=== PATIENT | female | born 1955 | race Caucasian/White ===

== ENCOUNTER → 2019-12-06 15:40 | Outpatient (BNVA) | payer BC, SELFPAY | PROVIDERS: Family Provider Family Medicine; PCP Nurse Practitioner Family; Visit Provider Internal Medicine Cardiovascular Disease | DX: M79.89 Other specified soft tissue disorders (principal); R06.02 Shortness of breath; I34.0 Nonrheumatic mitral (valve) insufficiency; R00.2 Palpitations; I10 Essential (primary) hypertension | CPT/HCPCS: 80048; 83735 ==

== ENCOUNTER → 2019-12-27 15:45 | Outpatient (BNVA) | payer BC, SELFPAY | PROVIDERS: Family Provider Family Medicine; PCP Family Medicine; Visit Provider Family Medicine | DX: I10 Essential (primary) hypertension (principal); Z78.0 Asymptomatic menopausal state; E55.9 Vitamin D deficiency, unspecified | CPT/HCPCS: 85025 ==

== ENCOUNTER → 2020-01-03 10:14 | Outpatient (BNVA) | payer BC, SELFPAY | PROVIDERS: Family Provider Family Medicine; PCP Family Medicine; Visit Provider Family Medicine | DX: I10 Essential (primary) hypertension (principal); E55.9 Vitamin D deficiency, unspecified | CPT/HCPCS: 80053; 80061; 82044; 82306; 85025 ==

== ENCOUNTER → 2020-06-19 10:41 | Outpatient (BNVA) | payer BC, SELFPAY | PROVIDERS: Family Provider Family Medicine; PCP Family Medicine; Visit Provider Internal Medicine Cardiovascular Disease | DX: E78.5 Hyperlipidemia, unspecified (principal) | CPT/HCPCS: 80061 ==

== ENCOUNTER → 2020-08-28 09:49 | Outpatient (BNVA) | payer BC, SELFPAY | PROVIDERS: Family Provider Family Medicine; PCP Family Medicine; Visit Provider Internal Medicine Cardiovascular Disease | DX: E55.9 Vitamin D deficiency, unspecified (principal); I10 Essential (primary) hypertension; M79.89 Other specified soft tissue disorders | CPT/HCPCS: 80061; 80076 ==

== ENCOUNTER → 2021-01-01 11:15 | Outpatient (BNVA) | payer BC, SELFPAY | PROVIDERS: Family Provider Family Medicine; PCP Family Medicine; Visit Provider Family Medicine | DX: Z13.6 Encounter for screening for cardiovascular disorders (principal); Z78.0 Asymptomatic menopausal state | CPT/HCPCS: 85025 ==

== ENCOUNTER 2021-02-19 14:08 | Outpatient (CLI) | payer BC, SELFPAY ==
--- NOTE | 2021-02-19 14:12 | XR_ITS ---
WS: [id number] SCREENING DEXA SCAN [employer] CLINICAL INFORMATION: post-menopausal COMPARISON: None. FINDINGS: The L1-L4 bone mineral density measures 0.984 g/cm2. This corresponds to a T score score of -1.6 and Z score of -0.5. Left femoral neck bone mineral density measures 0.645 g/cm2. This corresponds to a T score of -2.9 an d Z score of -1.9. Right femoral neck bone mineral density measures 0.706 g/cm2. This corresponds to a T score -2.4of an d Z score of -1.4. Mean femoral neck bone mineral density measures 0.676 g/cm2. This corresponds to a T score of -2.6 an d Z score of -1.6. XR/XR DEXA axial skeleton* [id number] IMPRESSION: Osteopenia in the lumbar spine. Osteoporosis in the femoral necks. Patient's FRAX calculated 10 year probability for major osteoporotic fracture i s 24.0 % and osteoporotic hip fracture is 10.2%.
== END 2021-02-19 14:09 | disposition home or self-care (01) ==
PROVIDERS: PCP Family Medicine; Visit Provider Family Medicine
DX: Z78.0 Asymptomatic menopausal state (principal); M85.88 Other specified disorders of bone density and structure, other site; M81.0 Age-related osteoporosis without current pathological fracture
CPT/HCPCS: 77080

== ENCOUNTER 2021-09-03 13:48 | Outpatient (CLI) | payer BC, SELFPAY ==
--- NOTE | 2021-09-03 14:15 | USCV_ITS ---
Kathy Franks Age: 65 Gender: F : 1955 Exam Date: 09/03/2021 14:36 Ordering Phys: Girish Cornejo MD ([email or web address] Technologist: KEY Exam Location: [facility] [place] Indication: Disorder of arteries and arterioles Risk Factors: Previous Vascular Surgery: Right Brachial BP: / Left Brachial BP: / Right Left Velocity (cm/s) Spectral Plaque Velocity (cm/s) Spectral Plaque Syst/Diast Broadening Syst/Diast Broadening 99.20/ 18.70 Prox CCA 83.40 / 23.10 98.10/ 16.50 Mid CCA 91.30 / 17.30 65.10/ 15.80 Distal CCA 72.20 / 18.60 69.80/ 14.30 Prox ICA 60.30 / 20.60 79.40/ 23.80 Mid ICA 75.00 / 27.60 67.50/ 24.60 Distal ICA 48.20 / 21.00 71.30 ECA 69.10 0.81 ICA/CCA 0.82 Antegrade Vertebral Antegrade 47.00/ 11.70 cm/s 66.00/ 20.20 cm/s Bi Subclavian Bi 78.60 82.90 FINDINGS Minimal plaques at the bifurcations bilaterally Intimal thickening in the common carotid and internal carotid arteries bilaterally Antegrade flow in the vertebral arteries bilaterally Normal Doppler flow velocities in the external, vertebral and subclavian arteries bilaterally CONCLUSIONS Minimal plaques at the bifurcations bilaterally. No significant stenosis in any of the extracranial vessels mentioned above, based on the findings Dr Girish Cornejo MD [facility] (Electronically Signed) Final Date: 03 September 2021 15:52 S
== END 2021-09-03 13:49 | disposition home or self-care (01) ==
LOC: RAD 13:52
PROVIDERS: PCP Family Medicine; Visit Provider Internal Medicine Cardiovascular Disease
DX: I77.9 Disorder of arteries and arterioles, unspecified (principal); R09.89 Other specified symptoms and signs involving the circulatory and respiratory systems; I65.23 Occlusion and stenosis of bilateral carotid arteries
CPT/HCPCS: 93880

== ENCOUNTER 2021-11-12 15:37 | Inpatient (IN) | payer MEDICARE, BC, SELFPAY ==
[2021-11-12 16:24] VITALS: BP 132/71; RESP 20; TEMP 38; O2SAT 96; BMI 25.7
--- NOTE | 2021-11-12 16:44 | CTR_ITS ---
PROCEDURE INFORMATION: Exam: CT Abdomen And Pelvis Without Contrast Exam date and time: 11/12/2021 4:55 PM Age: 66 years old Clinical indication: Pain; Other: Umbillical, flank and bilateral pelvic; Additional info: Lower quadrant abd pain, thin cuts, no contrast TECHNIQUE: Imaging protocol: Computed tomography of the abdomen and pelvis without contrast. Radiation optimization: All CT scans at this facility use at least one of these dose optimization techniques: automated exposure control; mA and/or kV adjustment per patient size (includes targeted exams where dose is matched to clinical indication); or iterative reconstruction. COMPARISON: CT abdomen pelvis w con* [id number] 09/13/2017 5:05 AM RADIATION DOSE METRICS: Total DLP (mGy-cm): 1233.81 FINDINGS: Liver: Normal. No mass. Gallbladder and bile ducts: Normal. No calcified stones. No ductal dilation. Pancreas: Normal. No ductal dilation. Spleen: Normal. No splenomegaly. Adrenal glands: Normal. No mass. Kidneys and ureters: Normal. No hydronephrosis. Stomach and bowel: Abnormal bowel wall thickening in the proximal sigmoid colon with fairly extensive pericolonic fat stranding changes and soft tissue attenuation possibly representing phlegmon changes with no organized pericolonic fluid collection at this time. Negative for bowel pneumatosis. Scattered diverticulosis coli. Negative for bowel obstruction. Appendix: No evidence of appendicitis. Intraperitoneal space: No free intraperitoneal air. Vasculature: Scattered atherosclerosis. Negative for abdominal aortic aneurysm. Lymph nodes: Unremarkable. No enlarged lymph nodes. Urinary bladder: Unremarkable as visualized. Reproductive: Unremarkable as visualized. Bones/joints: Unremarkable. No acute fracture. Multiple compression deformities of lumbar spine stable from comparison. Soft tissues: Unremarkable. CT/CT abdomen pelvis wo con [id number] IMPRESSION: Acute abnormal inflammatory changes in the proximal sigmoid colon are suspected with adjacent phlegmon. No organized abscess at this time. Diverticulitis favored, but other nonspecific colitis not excluded. Underlying mass cannot be excluded.
--- NOTE | 2021-11-12 16:45 | XRR_ITS ---
PROCEDURE INFORMATION: Exam: XR Chest Exam date and time: 11/12/2021 4:55 PM Age: 66 years old Clinical indication: Pain; Other: Lower ribs bilaterally; Additional info: Cough TECHNIQUE: Imaging protocol: XR of the chest. Views: 1 view. COMPARISON: CR Abdomen 2 views [id number] 09/14/2017 6:54 AM FINDINGS: Lungs: No focal airspace consolidation. Unremarkable interstitium. Pleural spaces: Unremarkable. No pleural effusion. No pneumothorax. Heart/Mediastinum: Mild severity cardiomegaly. Vasculature: Negative for vascular dilation. Bones/joints: Unremarkable. XR/XR chest 1V portable [id number] IMPRESSION: No acute chest abnormality identified.
--- NOTE | 2021-11-12 17:03 | W.ED.GENADLT ---
HPI - General Adult General: Chief complaint: Abdominal Pain Stated complaint: abdominal/back pain, shakiness,nausea, vomiting Time Seen by Provider: 11/12/21 16:06 History of Present Illness: Patient is a 66-year-old female with history of hypertension who presents the emergency room for multiple complaints today including productive cough, nasal congestion, and abdominal pain. Patient tells me that she has been having on and off abdominal pain for the last month that has now worsened. Patient reports right lower quadrant left lower quadrant abdominal pain with radiation to the left flank. Pain is worse after eating. Patient reports nausea vomiting and decreased p.o. intake. Patient denies any diarrhea/melena/hematochezia. Patient reports symptoms of dysuria for the last 2 weeks. Denies any hematuria or new vaginal discharge. In addition, for the last few weeks, patient has also reported nasal congestion and productive phlegm and cough. Patient noted that at home she had a low grade fever in the last 2 days. Patient denies any prior abdominal surgeries. Patient denies any history of renal colic. Patient denies any chest pain, shortness breath palpitation or lightheadedness. Onset:1 month agao Duration:ongoing Location:home Severity:moderate Associated symptoms: Reports nausea and vomiting; Deny chest pain, dyspnea, rash or palpitations Review of Systems Const: Denies: fever(s) or chills Eyes: Denies: change in vision ENMT: Reports: other (+nasal congestion); Denies: mouth pain Card: Denies: chest pain or palpitations Resp: Reports: productive cough; Denies: dyspnea GI: Reports: nausea, vomiting and other (+decreased po intake); Denies: abdominal pain or diarrhea : Denies: dysuria Musc: Denies: extremity pain Skin/Breast: Denies: rash or new lesions Neuro: Denies: weakness in extremities Psych: Reports: other (Normal mood) Colt/Lymph: Denies: easy bruising PFSH ED PFSH: Medical History Chronic joint pain Essential hypertension Left leg swelling Leg swelling Non-rheumatic mitral regurgitation Palpitations with regular cardiac rhythm Vitamin D deficiency Surgical History No pertinent past surgical history Family History Sister Cancer Family/Other Diabetes Stroke Denies family history of CAD (coronary artery disease) Clotting disorder Dementia Chronic kidney disease (CKD) Suicide Anesthesia complication Bleeding disorder Lung disease Social History Smoking and tobacco status: former smoker Alcohol intake: never Physical Exam Const: COMMON NORMALS: alert HENMT: COMMON NORMALS: atraumatic HEAD & SCALP: atraumatic MOUTH: moist mucous membranes not abnormal Eye: COMMON NORMALS: EOMs intact bilaterally and conjunctivae normal CONJUNCTIVA: Yes conjunctivae normal Neck/C-Spine: COMMON NORMALS: full ROM and supple Resp: COMMON NORMALS: normal respiratory effort and clear to auscultation bilaterally AUSCULTATION: clear to auscultation bilaterally Cardio: COMMON NORMALS: regular rate RATE: regular rate GI: COMMON NORMALS: Soft to palpation PALPATION: Yes Soft to palpation OTHER: +moderatre RLQ/LLQ TTP. NO guarding rebound, guarding, rigidity. No CVA tenderness to percussion. Neg Theodore/Neg McBurney's point tenderness, no suprabupic tenderness to palpation. Extremity: COMMON NORMALS: full ROM Neuro: SENSORIUM/ORIENTATION: Yes alert MOTOR EXAM: No Abnormal motor strength present and Other motor observations present (no focal motor deficits) Psych: COMMON NORMALS: speech normal SPEECH: Yes normal speech MOOD & AFFECT: Yes euthymic mood Course Vital Signs: Vital signs: Vital Signs Temperature 100.4 F H 11/12/21 16:24 Respiratory Rate 20 H 11/12/21 16:24 Blood Pressure 132/71 11/12/21 16:24 Pulse Oximetry 96 11/12/21 16:24 MDM - General Adult Medical Decision Making 58-year-old female with history of hypertension presenting to the emergency room with complaints of lower abdominal pain, productive cough, phlegm. On physical exam, patient is noted to be febrile 100.4 degrees. Patient has moderate tenderness palpation in the right lower quadrant and left lower quadrant without any guarding or rebound tenderness. WBC of 15K. CT abdomen pelvis showed complicated diverticulitis with phlegmon. Case was discussed with Dr. Owens who recommend inpatient mission and observation with IV antibiotics. Patient received IVF, Tylenol, Pepcid, Zosyn. Disposition: admission for observation Lab Data : 11/12/21 17:15 11/12/21 17:15 Radiology Impressions Abdomen/Pelvis CT 11/12/21 16:44 IMPRESSION: Acute abnormal inflammatory changes in the proximal sigmoid colon are suspected with adjacent phlegmon. No organized abscess at this time. Diverticulitis favored, but other nonspecific colitis not excluded. Underlying mass cannot be excluded. Chest X-Ray 11/12/21 16:45 IMPRESSION: No acute chest abnormality identified. Laboratory Results WBC 15.3 10^3/uL (4.0-10.0) H 11/12/21 17:15 RBC 3.61 10^6/uL (4.1-5.3) L 11/12/21 17:15 Hgb 10.3 g/dL (11.5-15.3) L 11/12/21 17:15 Hct 31.0 % (37.0-47.0) L 11/12/21 17:15 MCV 85.9 fl (81-99) 11/12/21 17:15 MCH 28.5 pg (28.0-34.0) 11/12/21 17:15 MCHC 33.2 g/dL (30.0-36.0) 11/12/21 17:15 RDW 12.9 % (12.1-15.1) 11/12/21 17:15 Plt Count 449 10^3/cmm (130-400) H 11/12/21 17:15 MPV 9.6 fL (7.4-10.4) 11/12/21 17:15 Neut % (Auto) 78.7 % 11/12/21 17:15 Lymph % (Auto) 10.6 % 11/12/21 17:15 Boyd % (Auto) 9.9 % 11/12/21 17:15 Eos % (Auto) 0.3 % 11/12/21 17:15 Baso % (Auto) 0.2 % 11/12/21 17:15 Neut # (Auto) 12.06 10^3/uL (1.8-7.7) H 11/12/21 17:15 Lymph # (Auto) 1.6 10^3/uL (0.8-4.8) 11/12/21 17:15 Boyd # (Auto) 1.5 10^3/uL (0.2-0.9) H 11/12/21 17:15 Eos # (Auto) 0.0 10^3/uL (0.0-0.8) 11/12/21 17:15 Baso # (Auto) 0.0 10^3/uL (0.0-0.1) 11/12/21 17:15 Nucleated RBC % (auto) 0 % 11/12/21 17:15 Nucleated RBCs # 0.0 /100WBC 11/12/21 17:15 Sodium 129 mmol/L (136-145) L 11/12/21 17:15 Potassium 3.5 mmol/L (3.5-5.1) 11/12/21 17:15 Chloride 92 mmol/L (98-107) L 11/12/21 17:15 Carbon Dioxide 26 mmol/L (22-29) 11/12/21 17:15 Anion Gap 14.5 (5-19) 11/12/21 17:15 BUN 5 mg/dL (8-23) L 11/12/21 17:15 Creatinine 0.5 mg/dL (0.5-0.9) 11/12/21 17:15 GFR Calculation 122.7 mL/min (90-130) 11/12/21 17:15 Glucose 109 mg/dL (65-115) 11/12/21 17:15 Calculated Osmolality 266 mOsm/kg (285-295) L 11/12/21 17:15 Calcium 9.0 mg/dL (8.5-10.5) 11/12/21 17:15 Total Bilirubin 0.4 mg/dL (0.15-1.2) 11/12/21 17:15 AST 30 U/L (0-32) 11/12/21 17:15 ALT 28 U/L (0-33) 11/12/21 17:15 Alkaline Phosphatase 91 IU/L (35-105) 11/12/21 17:15 Total Protein 7.5 g/dL (6.6-8.7) 11/12/21 17:15 Albumin 3.3 g/dL (3.5-5.2) L 11/12/21 17:15 Globulin 4.2 g/dL (1.3-4.6) 11/12/21 17:15 Lipase 19 U/L (13-60) 11/12/21 17:15 Urine Color Yellow (Yellow) 11/12/21 17:39 Urine Appearance Clear (CLEAR) 11/12/21 17:39 Urine pH 8 (5-7) H 11/12/21 17:39 Ur Specific [place] 1.015 (1.005-1.030) 11/12/21 17:39 Urine Protein Neg (Negative) 11/12/21 17:39 Urine Glucose (UA) Norm (Normal) 11/12/21 17:39 Urine Ketones Negative (Negative) 11/12/21 17:39 Urine Blood Neg (Negative) 11/12/21 17:39 Urine Nitrate Negative (Negative) 11/12/21 17:39 Urine Bilirubin Neg (Negative) 11/12/21 17:39 Prot Sulfosalicylic Acd Negative (Negative) 11/12/21 17:39 Urine Urobilinogen Norm mg/dL (Negative) 11/12/21 17:39 Ur Leukocyte Esterase 1+ (Negative) H 11/12/21 17:39 Amorphous Sediment Not Reportable 11/12/21 17:39 Imaging Data Other Imaging: Radiologist's impression: [address] [address] XRay Report Signed Patient: Kathy Franks Unit #: [id number] : 1955 Age/Sex: 66 / F ADM Date: 11/12/21 Loc: ER Room/Bed: Attending Dr: Ordering Provider/Ordering MD: Pablo Adrian MD Date of Service: 11/12/21 Procedure(s): XR chest 1V portable [id number] Accession Number(s): [id number] Report Number: [id number] PROCEDURE INFORMATION: Exam: XR Chest Exam date and time: 11/12/2021 4:55 PM Age: 66 years old Clinical indication: Pain; Other: Lower ribs bilaterally; Additional info: Cough TECHNIQUE: Imaging protocol: XR of the chest. Views: 1 view. COMPARISON: CR Abdomen 2 views [id number] 09/14/2017 6:54 AM FINDINGS: Lungs: No focal airspace consolidation. Unremarkable interstitium. Pleural spaces: Unremarkable. No pleural effusion. No pneumothorax. Heart/Mediastinum: Mild severity cardiomegaly. Vasculature: Negative for vascular dilation. Bones/joints: Unremarkable. XR/XR chest 1V portable [id number] IMPRESSION: No acute chest abnormality identified. ? Dictated By: Topher Sanabria Signed By: Topher Sanabria Signed Date/Time: 11/12/21 1735 DD/ [address] [employer] [address] [address] Scan Report Signed Patient: Kathy Franks Unit #: [id number] : 1955 Age/Sex: 66 / F ADM Date: 11/12/21 Loc: ER Room/Bed: Attending Dr: Ordering Provider/Ordering MD: Pablo Adrian MD Date of Service: 11/12/21 Procedure(s): CT abdomen pelvis wo con [id number] Accession Number(s): [id number] Report Number: [id number] PROCEDURE INFORMATION: Exam: CT Abdomen And Pelvis Without Contrast Exam date and time: 11/12/2021 4:55 PM Age: 66 years old Clinical indication: Pain; Other: Umbillical, flank and bilateral pelvic; Additional info: Lower quadrant abd pain, thin cuts, no contrast TECHNIQUE: Imaging protocol: Computed tomography of the abdomen and pelvis without contrast. Radiation optimization: All CT scans at this facility use at least one of these dose optimization techniques: automated exposure control; mA and/or kV adjustment per patient size (includes targeted exams where dose is matched to clinical indication); or iterative reconstruction. COMPARISON: CT abdomen pelvis w con* [id number] 09/13/2017 5:05 AM RADIATION DOSE METRICS: Total DLP (mGy-cm): 1233.81 FINDINGS: Liver: Normal. No mass. Gallbladder and bile ducts: Normal. No calcified stones. No ductal dilation. Pancreas: Normal. No ductal dilation. Spleen: Normal. No splenomegaly. Adrenal glands: Normal. No mass. Kidneys and ureters: Normal. No hydronephrosis. Stomach and bowel: Abnormal bowel wall thickening in the proximal sigmoid colon with fairly extensive pericolonic fat stranding changes and soft tissue attenuation possibly representing phlegmon changes with no organized pericolonic fluid collection at this time. Negative for bowel pneumatosis. Scattered diverticulosis coli. Negative for bowel obstruction. Appendix: No evidence of appendicitis. Intraperitoneal space: No free intraperitoneal air. Vasculature: Scattered atherosclerosis. Negative for abdominal aortic aneurysm. Lymph nodes: Unremarkable. No enlarged lymph nodes. Urinary bladder: Unremarkable as visualized. Reproductive: Unremarkable as visualized. Bones/joints: Unremarkable. No acute fracture. Multiple compression deformities of lumbar spine stable from comparison. Soft tissues: Unremarkable. CT/CT abdomen pelvis wo con [id number] IMPRESSION: Acute abnormal inflammatory changes in the proximal sigmoid colon are suspected with adjacent phlegmon. No organized abscess at this time. Diverticulitis favored, but other nonspecific colitis not excluded. Underlying mass cannot be excluded. ? Dictated By: Topher Sanabria Signed By: Topher Sanabria Signed Date/Time: 11/12/21 1734 DD/ 1655 Discharge Plan Discharge Patient Disposition: Admitted As Inpatient Clinical Impression: Abdominal pain, Nausea & vomiting, Decrease in appetite, Diverticulitis of large intestine with complication Condition: Stable Coding Level of Care Code ED Intermodal Dispatcher for Chg Fwd Exam Comprehensive
[2021-11-12 17:25] LABS: Basophils % 0.2 %; Eosinophils % 0.3 %; Hemoglobin 10.3 g/dL (11.5-15.3); Lymphocytes # 1.6 10^3/uL (0.8-4.8); Lymphocytes % 10.6 %; Mean Corpuscular HGB Conc 33.2 g/dL (30.0-36.0); Mean Corpuscular Hemoglobin 28.5 pg (28.0-34.0); Mean Corpuscular Volume 85.9 fl (81-99); Mean Platelet Volume 9.6 fL (7.4-10.4); Monocytes # 1.5 10^3/uL (0.2-0.9); Monocytes % 9.9 %; Neutrophils # 12.06 10^3/uL (1.8-7.7); Neutrophils % 78.7 %; Nucleated Red Blood Cells % 0 %; Platelet Count 449 10^3/cmm (130-400); Red Blood Count 3.61 10^6/uL (4.1-5.3); Red Cell Distribution Width 12.9 % (12.1-15.1); White Blood Count 15.3 10^3/uL (4.0-10.0)
[2021-11-12 17:45] LABS: Alanine Aminotransferase 28 U/L (0-33); Albumin Level 3.3 g/dL (3.5-5.2); Alkaline Phosphatase 91 IU/L (35-105); Anion Gap 14.5 (5-19); Aspartate Amino Transferase 30 U/L (0-32); Blood Urea Nitrogen 5 mg/dL (8-23); Carbon Dioxide 26 mmol/L (22-29); Chloride 92 mmol/L (98-107); Creatinine Clr Calc Pharmacy 63.7878; Globulin 4.2 g/dL (1.3-4.6); Glomerular Filtration Rate 122.7 mL/min (90-130); Glucose 109 mg/dL (65-115); Lipase 19 U/L (13-60); Osmolality Calculated 266 mOsm/kg (285-295); Potassium 3.5 mmol/L (3.5-5.1); Sodium 129 mmol/L (136-145); Total Bilirubin 0.4 mg/dL (0.15-1.2); Total Protein 7.5 g/dL (6.6-8.7)
[2021-11-12 18:01] LABS: Add Urine Microscopic? YES; Bilirubin Urine Neg (Negative); Blood Urine Neg (Negative); Glucose Urine UA Norm (Normal); Ketones Urine Negative (Negative); Leukocyte Esterase Urine 1+ (Negative); Nitrate Urine Negative (Negative); Protein Urine Neg (Negative); Specific Gravity, Urine 1.015 (1.005-1.030); Sulfosalicylic Acid Urine Negative (Negative); Urine Appearance Clear (CLEAR); Urine Color Yellow (Yellow); Urobilinogen Urine Norm (Negative); pH Urine 8 (5-7)
[2021-11-12 18:02] VITALS: BP 158/79; PULSE 97; RESP 16; O2SAT 95
[2021-11-12 18:03] LABS: Add Urine Culture? Yes; Bacteria Urine TRACE /hpf; Squamous Epithelial Cell Urine 0-4 /hpf (0-5); WBC Urine 15-25 /hpf (0-5)
--- NOTE | 2021-11-12 18:05 | PM.HP ---
Providers/Chief Complaint Primary Care Provider: Velma Mireles DO Chief Complaint: abdominal/back pain, shakiness,nausea, vomiting History of Present Illness Kathy Franks is a 66 year old female with past medical history of hypertension was brought in with chief complaint of Lower abdominal pain going on for about a month's time, she is also complaining of subjective fever at home, nausea as well as few episodes of vomiting. Currently she denies any chest pain shortness of breath, urinary complaints. Upon arrival in the ER she was worked up for above mention complaint: Pertinent imaging studies: CT abdomen pelvis wo con: Abnormal bowel wall thickening in the proximal sigmoid colon with fairly extensive pericolonic fat stranding changes and soft tissue attenuation possibly representing phlegmon changes with no organized pericolonic fluid collection at this time. Pertinent labs: WBC 15.3, H&H 05/06, plt : 449 , serum sodium 129 serum potassium 3.5 BUN serum creatinine : 5/0.5 Review of Systems General: Reports: 10 or more systems reviewed and unremarkable except in HPI and below Narrative: 66-year-old currently not in acute distress being admitted for chest pain evaluation Const: Denies: fever(s), chills, body aches, change in appetite or diaphoresis Card: Denies: palpitations, edema, swelling of feet/ankles, dyspnea on exertion, orthopnea or leg pain with exertion Resp: Denies: dyspnea, productive cough, wheezing or pain on inspiration GI: Denies: abdominal pain, nausea, vomiting, diarrhea or constipation : Denies: flank pain Musc: Denies: back pain, extremity pain or extremity swelling Neuro: Denies: headache(s), difficulty walking or confusion Medications/Allergies Home Medications Medication Instructions Recorded Confirmed Last Taken Type cholecalciferol (vitamin D3) 125 125 mcg PO DAILY 30 Days #30 cap 02/19/21 11/12/21 11/05/21 Rx mcg (5,000 unit) capsule [id number] 10-200 See Rx Instructions .ROUTE .COMPLEX 11/12/21 11/12/21 Unknown History mg(dy)/2-15-500mg(nt)tablet,capsule (Coricidin HBP Day-Night) acetaminophen 500 mg tablet 500 mg PO BID PRN 11/12/21 11/12/21 Unknown History magnesium citrate 150 ml PO .ONCE 11/12/21 11/12/21 11/09/21 History metoprolol tartrate 25 mg tablet 25 mg PO BID 11/12/21 11/12/21 11/12/21 History psyllium 1 packet PO QAM 11/12/21 11/12/21 11/12/21 History rosuvastatin 5 mg tablet 5 mg PO BEDTIME 11/12/21 11/12/21 11/11/21 History telmisartan 40 mg tablet 40 mg PO BEDTIME 11/12/21 11/12/21 11/11/21 History turmeric 400 mg capsule 400 mg PO DAILY PRN 11/12/21 11/12/21 11/11/21 History Allergies Allergy/AdvReac Type Severity Reaction Status Date / Time lisinopril Allergy Unknown cough Verified 11/12/21 17:20 PFSH Acute PFSH: Medical History Chronic joint pain Essential hypertension Left leg swelling Leg swelling Non-rheumatic mitral regurgitation Palpitations with regular cardiac rhythm Vitamin D deficiency Surgical History No pertinent past surgical history Family History Sister Cancer Family/Other Diabetes Stroke Denies family history of CAD (coronary artery disease) Clotting disorder Dementia Chronic kidney disease (CKD) Suicide Anesthesia complication Bleeding disorder Lung disease Social History Smoking and tobacco status: former smoker Alcohol intake: never Vitals/I&O/Wt Last Vital Signs Temp 100.4 F H 11/12/21 16:24 Resp 20 H 11/12/21 16:24 BP 132/71 11/12/21 16:24 Pulse Ox 96 11/12/21 16:24 Weight last 48 hrs Weight 68.039 kg Physical Exam Const: COMMON NORMALS: patient oriented x3 HENMT: COMMON NORMALS: normocephalic and atraumatic HEAD & SCALP: normocephalic and atraumatic Eye: GENERAL EYE: appearance normal, both eyes and all related structures Chest: CHEST: Yes Symmetrical chest wall rise Resp: COMMON NORMALS: normal respiratory effort, No retractions, No use of accessory muscles and clear to auscultation bilaterally EFFORT & INSPECTION: Yes symmetric chest movement AUSCULTATION: clear to auscultation bilaterally Cardio: COMMON NORMALS: regular rate, regular rhythm, S1 normal heart sound present, S2 normal heart sound present, No gallops present (Cardio), No murmurs present (Cardio), No rub (Cardio) and Peripheral pulses 2+ throughout RATE: regular rate RHYTHM: regular rhythm HEART SOUNDS: S1 normal heart sound present and S2 normal heart sound present PERIPHERAL PULSES: Peripheral pulses 2+ throughout GI: COMMON NORMALS: Normal to inspection, nondistended, normoactive bowel sounds present and Soft to palpation AUSCULTATION: Yes normoactive bowel sounds RECTAL EXAM: deferred OTHER: Lower abdominal tenderness present, no rebound tenderness Extremity: COMMON NORMALS: no clubbing, cyanosis or edema and no pedal edema Neuro: COMMON NORMALS: patient oriented x3 Data : 11/12/21 17:15 11/12/21 17:15 A&P Assessment and plan (1) Colitis: Status: Acute (2) Essential hypertension: Status: Chronic (3) Fever: Status: Acute (4) Hyponatremia: Status: Acute Plan 66 year old female with past medical history of hypertension was brought in with chief complaint of Lower abdominal pain going on for about a month's time, she is also complaining of subjective fever at home, nausea as well as few episodes of vomiting. Assessment: Colitis: Continue IV hydration IV antibiotics Pain control Zofran as needed Surgery was consulted by ER Hypovolemic hyponatremia: IV hydration Monitor BMP CODE STATUS:fULL CODE DVT PPX : On Lovenox Attestations Medical Necessity Statement*: Patient in hospital for management of colitis. Anticipated length of stay greater than 2 midnights Time Spent in Patient Care: Greater than 35 minutes (>than 50% of time spent in counselling and/or direct pt care on unit). Coding Level of Care Code Acute Station Operator for Chg Fwd Exam Comprehensive Diagnoses Colitis K52.9 Essential hypertension I10 Fever R50.9 Hyponatremia E87.1
[2021-11-12] MEDS: famotidine 20 mg/2 mL INJ IVP (18:26)
[2021-11-12] MEDS: sodium chloride 0.9% 1,000 ML 999 ML IV (18:26)
[2021-11-12] MEDS: acetaminophen 500 mg Tablet 1000 MG PO (18:26)
[2021-11-12 18:27] VITALS: RESP 16
[2021-11-12] MEDS: morphine 4 mg/mL SDV 1 mL IVP (18:27)
[2021-11-12 19:08] LABS: Lactic Sepsis W/Reflex 0.8 mmol/L (0.5-2.2)
[2021-11-12 20:00] VITALS: BP 144/79; PULSE 79; RESP 18; TEMP 37.2; O2SAT 97
[2021-11-12] MEDS: enoxaparin 40 mg/0.4 mL Syringe SUBCUT (20:06)
[2021-11-12 20:11] LABS: Adenovirus Not Detected (NOT DETECT); Chlamydia Pneumoniae Not Detected (NOT DETECT); Coronavirus 229E,HKU1,NL63,OC4 Not Detected (NOT DETECT); Human Metapneumovirus Not Detected (NOT DETECT); Human Rhinovirus/Enterovirus Not Detected (NOT DETECT); Influenza A Not Detected (NOT DETECT); Influenza A H1 Not Detected (NOT DETECT); Influenza A H1-2009 Not Detected (NOT DETECT); Influenza A H3 Not Detected (NOT DETECT); Influenza B Not Detected (NOT DETECT); Mycoplasma Pneumoniae Not Detected (NOT DETECT); Parainfluenza Virus Type 1 Not Detected (NOT DETECT); Parainfluenza Virus Type 2 Not Detected (NOT DETECT); Parainfluenza Virus Type 3 Not Detected (NOT DETECT); Parainfluenza Virus Type 4 Not Detected (NOT DETECT); Respiratory Syncytial Virus A Not Detected (NOT DETECT); Respiratory Syncytial Virus B Not Detected (NOT DETECT); SARS-COV-2 Not Detected (NOT DETECT)
[2021-11-12 20:14] VITALS: BP 146/82; PULSE 91; RESP 16; O2SAT 95
[2021-11-12 20:25] LABS: Results from GENMARK
[2021-11-12 20:51] VITALS: PULSE 76; O2SAT 96
[2021-11-12] MEDS: sodium chloride 0.9% 1,000 ML 75 ML IV (20:52)
[2021-11-13] VITALS: BP 132/77; PULSE 74; RESP 18; TEMP 37; O2SAT 100
[2021-11-13] MEDS: ondansetron 2 mg/ML SDV 2 mL 4 MG IVP (01:34)
[2021-11-13] MEDS: morphine 4 mg/mL SDV 1 mL 2 MG IVP (01:34)
[2021-11-13 04:00] VITALS: BP 128/72; PULSE 70; RESP 18; TEMP 36.9; O2SAT 99
[2021-11-13 06:29] LABS: Basophils % 0.3 %; Eosinophils # 0.1 10^3/uL (0.0-0.8); Eosinophils % 1.3 %; Hematocrit 31.6 % (37.0-47.0); Hemoglobin 9.8 g/dL (11.5-15.3); Lymphocytes # 1.5 10^3/uL (0.8-4.8); Lymphocytes % 14.3 %; Mean Corpuscular Hemoglobin 27.7 pg (28.0-34.0); Mean Corpuscular Volume 89.3 fl (81-99); Mean Platelet Volume 9.8 fL (7.4-10.4); Monocytes # 1.2 10^3/uL (0.2-0.9); Monocytes % 11.6 %; Neutrophils # 7.67 10^3/uL (1.8-7.7); Neutrophils % 72.1 %; Nucleated Red Blood Cells % 0 %; Platelet Count 399 10^3/cmm (130-400); Red Blood Count 3.54 10^6/uL (4.1-5.3); Red Cell Distribution Width 12.9 % (12.1-15.1); White Blood Count 10.6 10^3/uL (4.0-10.0)
[2021-11-13 06:48] LABS: Alanine Aminotransferase 21 U/L (0-33); Albumin Level 2.8 g/dL (3.5-5.2); Alkaline Phosphatase 103 IU/L (35-105); Anion Gap 14.7 (5-19); Aspartate Amino Transferase 22 U/L (0-32); Blood Urea Nitrogen 5 mg/dL (8-23); Calcium 8.7 mg/dL (8.5-10.5); Carbon Dioxide 25 mmol/L (22-29); Chloride 100 mmol/L (98-107); Creatinine Clr Calc Pharmacy 63.7878; Globulin 3.8 g/dL (1.3-4.6); Glomerular Filtration Rate 122.7 mL/min (90-130); Glucose 109 mg/dL (65-115); Magnesium 1.8 mg/dL (1.7-2.3); Osmolality Calculated 280 mOsm/kg (285-295); Potassium 3.7 mmol/L (3.5-5.1); Sodium 136 mmol/L (136-145); Total Bilirubin 0.4 mg/dL (0.15-1.2); Total Protein 6.6 g/dL (6.6-8.7)
[2021-11-13 08:00] VITALS: BP 142/88; PULSE 81; RESP 18; TEMP 37.4; O2SAT 95
[2021-11-13] MEDS: acetaminophen 325 mg Tablet 650 MG PO (08:42)
[2021-11-13] MEDS: piperacillin-tazobactam 3.375 GM in dextrose 5% (plus) 50 ML IV ×2 (10:54→18:05)
[2021-11-13 11:33] VITALS: BP 132/78; PULSE 86; RESP 18; TEMP 37.2; O2SAT 96
[2021-11-13] MEDS: sodium chloride 0.9% 1,000 ML 75 ML IV (13:38)
--- NOTE | 2021-11-13 15:49 | P.PN_ITS ---
Subjective Subjective: Patient was seen and examined this morning, she says that the abdominal pain has improved, currently wants to try eating, hyponatremia has resolved, will start her on full liquid diet advance as tolerated. Medications: Medication Review Details: Generic Name Dose Route Start Last Admin Trade Name Nolanq PRN Reason Stop Dose Admin Acetaminophen 650 mg 11/12/21 18:00 11/13/21 08:42 Acetaminophen 32 5 Mg Tablet PO 650 mg Q6H PRN Administration Mild/Mod Pain Or Temp >/= 101 Enoxaparin Sodium 40 mg 11/12/21 18:00 11/12/21 20:06 Enoxaparin 40 Mg /0.4 Ml Syringe SUBCUT 40 mg Q24H KOLTON Administration Sodium Chloride 1,000 mls @ 75 ml s/hr 11/12/21 18:00 11/13/21 13:38 Sodium Chloride 0.9% IV 75 mls/hr .[id number] KOLTON Administration Piperacillin Sod/T azobactam 50 mls @ 12.5 mls /hr 11/13/21 10:00 11/13/21 14:58 Sod 3.375 gm/ De xtrose IV Infused Q8H KOLTON Infusion Protocol Morphine Sulfate 2 mg 11/12/21 18:00 11/13/21 01:34 Morphine 4 Mg/Ml Sdv 1 Ml IVP 2 mg Q4H PRN Administration SEVERE PAIN Ondansetron HCl 4 mg 11/12/21 18:00 11/13/21 01:34 Ondansetron 2 Mg /Ml Sdv 2 Ml IVP 4 mg Q8H PRN Administration vomiting, or N/V if npo Vitals/I&O/Wt Last Vital Signs Temp 99.0 F 11/13/21 11:33 Pulse 86 11/13/21 11:33 Resp 18 11/13/21 11:33 BP 132/78 11/13/21 11:33 Pulse Ox 96 11/13/21 11:33 11/13/21 11/13/21 11/13/21 06:59 14:59 22:59 Intake Total 50 / 1220 1050 / 1050 Output Total 1280 / 1280 850 / 850 Balance -1230 / -60 200 / 200 Weight last 48 hrs Weight 68.039 kg Physical Exam Const: COMMON NORMALS: patient oriented x3 HENMT: COMMON NORMALS: normocephalic and atraumatic HEAD & SCALP: normocephalic and atraumatic Eye: COMMON NORMALS: no scleral icterus GENERAL EYE: appearance normal, both eyes and all related structures Chest: COMMONS NORMALS: normal inspection of the chest and normal palpation of entire chest wall CHEST: Yes Symmetrical chest wall rise Resp: COMMON NORMALS: normal respiratory effort, No retractions, No use of accessory muscles and clear to auscultation bilaterally EFFORT & INSPECTION: Yes symmetric chest movement AUSCULTATION: clear to auscultation bilaterally Cardio: COMMON NORMALS: regular rate, regular rhythm, S1 normal heart sound present, S2 normal heart sound present, No gallops present (Cardio), No murmurs present (Cardio), No rub (Cardio) and Peripheral pulses 2+ throughout RATE: regular rate RHYTHM: regular rhythm HEART SOUNDS: S1 normal heart sound present and S2 normal heart sound present PERIPHERAL PULSES: Peripheral pulses 2+ throughout GI: COMMON NORMALS: Normal to inspection, nondistended, normoactive bowel sounds present and Soft to palpation AUSCULTATION: Yes normoactive bowel sounds PALPATION: Yes Soft to palpation RECTAL EXAM: deferred OTHER: Lower abdominal tenderness present, no rebound tenderness Extremity: COMMON NORMALS: no clubbing, cyanosis or edema and no pedal edema Neuro: COMMON NORMALS: patient oriented x3 Data : 11/13/21 05:43 11/13/21 05:43 Micro: Microbiology 11/12/21 18:58 Blood Culture - Preliminary Blood SPECIMEN COLLECTED 11/12/21 18:40 Blood Culture - Preliminary Blood SPECIMEN COLLECTED A&P Assessment and plan (1) Colitis: Status: Acute (2) Essential hypertension: Status: Chronic (3) Fever: Status: Acute (4) Hyponatremia: Status: Acute Plan 66 year old female with past medical history of hypertension was brought in with chief complaint of Lower abdominal pain going on for about a month's time, she is also complaining of subjective fever at home, nausea as well as few episodes of vomiting. Assessment: Colitis: Follow stool studies Blood culture Continue IV hydration IV antibiotics Pain control Zofran as needed Surgery was consulted by ER Hypovolemic hyponatremia: IV hydration Monitor BMP CODE STATUS:fULL CODE DVT PPX : On Lovenox Attestations Medical Necessity Statement*: Patient in hospital for management of colitis Coding Level of Care Code Acute [employer] for Celia Nagel Diagnoses Colitis K52.9 Essential hypertension I10 Fever R50.9 Hyponatremia E87.1
[2021-11-13 15:56] VITALS: BP 148/87; RESP 12; TEMP 36.9; O2SAT 99
[2021-11-13] MEDS: famotidine 20 mg/2 mL INJ IVP (16:31)
--- NOTE | 2021-11-13 16:51 | P.CONIM_ITS ---
Providers/Reason For Consult Consulting Physician/Specialty*: Dr. Owens/ General Surgery Reason for Consult*: Abdominal pain Attending Physician: Seferino Vance MD Primary Care Provider: Velma Mireles DO History of Present Illness History of Present Illness Kathy Franks is a 66 year old female who presented to the ER with a one month history of worsening lower abdominal pain, nausea and vomiting. Upon presentation the pain was severe located in suprapubic and left lower quadrant regions, radiating to the back. She was having nonbilious, nonbloody emesis for the past month. Over the past 2 days she developed fever and chills. She has chronic constipation and takes Benefiber and MiraLAX daily. She has never had a colonoscopy and in fact refuses one. She has appointment to see her primary care physician later this month. Nothing makes the pain better or worse. She has had this type of pain multiple times in the past. Her pain is much improved today. Review of Systems Narrative: 12 point review of systems is negative except as previously mentioned in the HPI. Medications/Allergies Home Medications Medication Instructions Recorded Confirmed Last Taken Type cholecalciferol (vitamin D3) 125 125 mcg PO DAILY 30 Days #30 cap 02/19/21 11/12/21 11/05/21 Rx mcg (5,000 unit) capsule [id number] 10-200 See Rx Instructions .ROUTE .COMPLEX 11/12/21 11/12/21 Unknown History mg(dy)/2-15-500mg(nt)tablet,capsule (Coricidin HBP Day-Night) acetaminophen 500 mg tablet 500 mg PO BID PRN 11/12/21 11/12/21 Unknown History magnesium citrate 150 ml PO .ONCE 11/12/21 11/12/21 11/09/21 History metoprolol tartrate 25 mg tablet 25 mg PO BID 11/12/21 11/12/21 11/12/21 History psyllium 1 packet PO QAM 11/12/21 11/12/21 11/12/21 History rosuvastatin 5 mg tablet 5 mg PO BEDTIME 11/12/21 11/12/21 11/11/21 History telmisartan 40 mg tablet 40 mg PO BEDTIME 11/12/21 11/12/21 11/11/21 History turmeric 400 mg capsule 400 mg PO DAILY PRN 11/12/21 11/12/21 11/11/21 History Allergies Allergy/AdvReac Type Severity Reaction Status Date / Time lisinopril Allergy Unknown cough Verified 11/12/21 17:20 Current Medications Generic Name Dose Route Start Last Admin Trade Name Freq PRN Reason Stop Dose Admin Acetaminophen 650 mg 11/12/21 18:00 11/13/21 08:42 Acetaminophen 325 Mg Tablet PO 650 mg Q6H PRN Administration Mild/Mod Pain Or Temp >/= 101 Enoxaparin Sodium 40 mg 11/12/21 18:00 11/12/21 20:06 Enoxaparin 40 Mg/0.4 Ml Syringe SUBCUT 40 mg Q24H KOLTON Administration Famotidine 20 mg 11/13/21 16:00 11/13/21 16:31 Famotidine 20 Mg/2 Ml Inj IVP 20 mg Q12H KOLTON Administration Sodium Chloride 1,000 mls @ 75 mls/hr 11/12/21 18:00 11/13/21 13:38 Sodium Chloride 0.9% IV 75 mls/hr .[id number] KOLTON Administration Piperacillin Sod/Tazobactam 50 mls @ 12.5 mls/hr 11/13/21 10:00 11/13/21 14:58 Sod 3.375 gm/ Dextrose IV Infused Q8H KOLTON Infusion Protocol Morphine Sulfate 2 mg 11/12/21 18:00 11/13/21 01:34 Morphine 4 Mg/Ml Sdv 1 Ml IVP 2 mg Q4H PRN Administration SEVERE PAIN Ondansetron HCl 4 mg 11/12/21 18:00 11/13/21 01:34 Ondansetron 2 Mg/Ml Sdv 2 Ml IVP 4 mg Q8H PRN Administration vomiting, or N/V if npo PFSH Acute PFSH: Medical History Chronic joint pain Essential hypertension Left leg swelling Leg swelling Non-rheumatic mitral regurgitation Palpitations with regular cardiac rhythm Vitamin D deficiency Surgical History No pertinent past surgical history Family History Sister Cancer Family/Other Diabetes Stroke Denies family history of CAD (coronary artery disease) Clotting disorder Dementia Chronic kidney disease (CKD) Suicide Anesthesia complication Bleeding disorder Lung disease Social History Smoking and tobacco status: former smoker Alcohol intake: never PFSH: Medical History Chronic joint pain Essential hypertension Left leg swelling Leg swelling Non-rheumatic mitral regurgitation Palpitations with regular cardiac rhythm Vitamin D deficiency Surgical History No pertinent past surgical history Family History Sister Cancer Family/Other Diabetes Stroke Denies family history of CAD (coronary artery disease) Clotting disorder Dementia Chronic kidney disease (CKD) Suicide Anesthesia complication Bleeding disorder Lung disease Social History Smoking and tobacco status: former smoker Alcohol intake: never Vitals/I&O/Wt Last Vital Signs Temp 98.4 F 11/13/21 15:56 Pulse 86 11/13/21 11:33 Resp 12 11/13/21 15:56 BP 148/87 11/13/21 15:56 Pulse Ox 99 11/13/21 15:56 11/13/21 11/13/21 11/13/21 06:59 14:59 22:59 Intake Total 50 / 1220 1050 / 1050 Output Total 1280 / 1280 850 / 850 Balance -1230 / -60 200 / 200 Weight last 48 hrs Weight 150 lb Physical Exam Narrative: General : Patient is well developed , no acute distress, oriented x3 Head : Normal cephalic, a-traumatic. Ears : TM's are without erythema or bulging, Pinnae and external canal are normal.? Hearing is normal. ? Eyes : PERRLA, Sclera and injection are normal. No conjunctival discharge. Nose : Mucous membranes are without erythema. Throat : buccal mucosa is normal, gums are without significant recession or hypertrophy. Lungs : Clear to ausculation, trachea is midline. Cor : Rate and rhythm are normal.? ? Abdomen : Soft, nondistended, minimal suprapubic tenderness Extremities : No edema, no cyanosis or clubbing, dorsalis pedis pulses are present bilaterally, non-tender to palpation of calves.? Upper extremities are normal bilaterally. Back : non-tender to palpation, no CVA tenderness. Neuro : CN II - XII intact, Upper and lower extremities have equal and full strength, . Data : 11/13/21 05:43 11/13/21 05:43 Micro: Microbiology 11/12/21 18:58 Blood Culture - Preliminary Blood SPECIMEN COLLECTED 11/12/21 18:40 Blood Culture - Preliminary Blood SPECIMEN COLLECTED A&P Assessment and plan (1) Colitis: Status: Acute Plan -Colitis IVF Abx Agree with Full liquids- patient has minimal pain Stool studies Daily labs Patient needs a colonoscopy in 6 weeks after discharge. She is refusing, however. I recommended a cologuard when she sees her family medicine doctor later this month. Will reassess in the morning Thank you for this consultation Coding Level of Care Code Established Pt Acute Clinical Field Specialist for Carlos Eduardog Fwd Patient Type Established History Expanded Problem Focused Exam Expanded Problem Focused Medical Decision Making Low Complexity Diagnoses Colitis K52.9
[2021-11-13] MEDS: enoxaparin 40 mg/0.4 mL Syringe SUBCUT (18:04)
[2021-11-13 20:00] VITALS: BP 127/77; PULSE 92; RESP 17; TEMP 37.4; O2SAT 98
[2021-11-14] VITALS: BP 122/72; PULSE 86; RESP 17; TEMP 37.3; O2SAT 97
[2021-11-14] MEDS: piperacillin-tazobactam 3.375 GM in dextrose 5% (plus) 50 ML IV (01:46)
[2021-11-14] MEDS: sodium chloride 0.9% 1,000 ML 75 ML IV (02:40)
[2021-11-14] MEDS: famotidine 20 mg/2 mL INJ IVP (03:45)
[2021-11-14 04:00] VITALS: BP 127/69; PULSE 91; RESP 17; TEMP 37.1; O2SAT 96
[2021-11-14 05:51] LABS: Basophils % 0.3 %; Eosinophils # 0.2 10^3/uL (0.0-0.8); Eosinophils % 2.3 %; Hematocrit 28.8 % (37.0-47.0); Hemoglobin 9.2 g/dL (11.5-15.3); Lymphocytes # 1.3 10^3/uL (0.8-4.8); Lymphocytes % 12.7 %; Mean Corpuscular HGB Conc 31.9 g/dL (30.0-36.0); Mean Corpuscular Volume 87.8 fl (81-99); Mean Platelet Volume 9.7 fL (7.4-10.4); Monocytes # 0.9 10^3/uL (0.2-0.9); Monocytes % 8.8 %; Neutrophils # 7.79 10^3/uL (1.8-7.7); Neutrophils % 75.5 %; Nucleated Red Blood Cells % 0 %; Platelet Count 418 10^3/cmm (130-400); Red Blood Count 3.28 10^6/uL (4.1-5.3); Red Cell Distribution Width 12.9 % (12.1-15.1); White Blood Count 10.3 10^3/uL (4.0-10.0)
[2021-11-14 06:35] LABS: Alanine Aminotransferase 41 U/L (0-33); Albumin Level 2.6 g/dL (3.5-5.2); Alkaline Phosphatase 75 IU/L (35-105); Anion Gap 15.5 (5-19); Aspartate Amino Transferase 46 U/L (0-32); Blood Urea Nitrogen 4 mg/dL (8-23); Calcium 8.7 mg/dL (8.5-10.5); Carbon Dioxide 24 mmol/L (22-29); Chloride 100 mmol/L (98-107); Creatinine Clr Calc Pharmacy 63.7878; Globulin 3.6 g/dL (1.3-4.6); Glomerular Filtration Rate 122.7 mL/min (90-130); Glucose 97 mg/dL (65-115); Osmolality Calculated 279 mOsm/kg (285-295); Potassium 3.5 mmol/L (3.5-5.1); Sodium 136 mmol/L (136-145); Total Bilirubin 0.4 mg/dL (0.15-1.2); Total Protein 6.2 g/dL (6.6-8.7)
[2021-11-14 07:43] VITALS: BP 124/69; PULSE 88; RESP 13; TEMP 36.8; O2SAT 97
--- NOTE | 2021-11-14 09:39 | PM.DCS ---
Discharge Providers Date of Admission: 11/12/21 18:40 Date of Discharge: November 14, 2021 Attending Provider at Admission: Seferino Vance MD Attending Provider at Discharge: Seferino Vance MD Primary Care Provider: Velma Mireles DO Diagnoses at Discharge Discharge Diagnosis (1) Colitis: Status: Acute Reason for Visit Reason for Visit: abdominal/back pain, shakiness,nausea, vomiting Hospital Course Hospital Course Kathy Franks is a 66 year old female with past medical history of hypertension was brought in with chief complaint of Lower abdominal pain going on for about a month's time, she is also complaining of subjective fever at home, nausea as well as few episodes of vomiting.? Currently she denies any chest pain shortness of breath, urinary complaints. Upon arrival in the ER she was worked up for above mention complaint: Pertinent imaging studies: CT abdomen pelvis wo con:?Abnormal bowel wall thickening in the proximal sigmoid colon with fairly extensive pericolonic fat stranding changes and soft tissue attenuation possibly representing phlegmon changes with no organized pericolonic fluid collection at this time. Pertinent labs: WBC 15.3, H&H 10/31, plt : 449 , serum sodium 129 serum potassium 3.5 BUN serum creatinine : 5/0.5 Hospital course: Patient was admitted for the management of colitis: She was kept on IV antibiotics, IV hydration Pepcid, antiemetics Blood culture was negative. Patient responded well to all above conservative medical management. At the time of discharge she was tolerating Full liquid diet well, denied any significant abdominal pain nausea vomiting. She was afebrile hemodynamically stable. She was discharged to follow-up primary care physician as well as surgery for elective colonoscopy. Physical Exam Const: COMMON NORMALS: patient oriented x3 HENMT: COMMON NORMALS: normocephalic and atraumatic HEAD & SCALP: normocephalic and atraumatic Chest: COMMONS NORMALS: normal inspection of the chest and normal palpation of entire chest wall CHEST: Yes Symmetrical chest wall rise Resp: COMMON NORMALS: normal respiratory effort, No retractions, No use of accessory muscles and clear to auscultation bilaterally EFFORT & INSPECTION: Yes symmetric chest movement AUSCULTATION: clear to auscultation bilaterally Cardio: COMMON NORMALS: regular rate, regular rhythm, S1 normal heart sound present, S2 normal heart sound present, No gallops present (Cardio), No murmurs present (Cardio), No rub (Cardio) and Peripheral pulses 2+ throughout RATE: regular rate RHYTHM: regular rhythm HEART SOUNDS: S1 normal heart sound present and S2 normal heart sound present PERIPHERAL PULSES: Peripheral pulses 2+ throughout GI: COMMON NORMALS: Normal to inspection, nondistended, normoactive bowel sounds present and Soft to palpation AUSCULTATION: Yes normoactive bowel sounds PALPATION: Yes Soft to palpation RECTAL EXAM: deferred OTHER: Lower abdominal tenderness present, no rebound tenderness Extremity: COMMON NORMALS: no clubbing, cyanosis or edema and no pedal edema Neuro: COMMON NORMALS: patient oriented x3 Discharge Data Studies Completed and Pending Completed Studies During Hospitalization Category Date Time Status CT abdomen pelvis wo con [id number] Urgent Cat Scan 11/12/21 16:44 Completed XR chest 1V portable [id number] Urgent Exams 11/12/21 16:45 Completed Pending at discharge Category Date Time Status Blood Culture Routine Lab 11/12/21 18:58 Results Clostridioides Difficile PCR Routine Lab 11/13/21 12:22 Uncollected Complete Blood Count w/Auto AM LABS Lab 11/15/21 04:00 Ordered Comprehensive Metabolic Panel AM LABS Lab 11/15/21 04:00 Ordered Stool Culture, Bacterial [Enteric Bacterial Panel by Lab 11/13/21 12:22 Uncollected PCR] Routine Urine Culture Stat Lab 11/12/21 17:39 Received stool Ova and Parasite [Enteric Parasite Panel by PCR] Lab 11/13/21 12:22 Uncollected Routine Radiology Impressions Abdomen/Pelvis CT 11/12/21 16:44 IMPRESSION: Acute abnormal inflammatory changes in the proximal sigmoid colon are suspected with adjacent phlegmon. No organized abscess at this time. Diverticulitis favored, but other nonspecific colitis not excluded. Underlying mass cannot be excluded. Chest X-Ray 11/12/21 16:45 IMPRESSION: No acute chest abnormality identified. Laboratory Results WBC 10.3 10^3/uL (4.0-10.0) H 11/14/21 05:08 RBC 3.28 10^6/uL (4.1-5.3) L 11/14/21 05:08 Hgb 9.2 g/dL (11.5-15.3) L 11/14/21 05:08 Hct 28.8 % (37.0-47.0) L 11/14/21 05:08 MCV 87.8 fl (81-99) 11/14/21 05:08 MCH 28.0 pg (28.0-34.0) 11/14/21 05:08 MCHC 31.9 g/dL (30.0-36.0) 11/14/21 05:08 RDW 12.9 % (12.1-15.1) 11/14/21 05:08 Plt Count 418 10^3/cmm (130-400) H 11/14/21 05:08 MPV 9.7 fL (7.4-10.4) 11/14/21 05:08 Neut % (Auto) 75.5 % 11/14/21 05:08 Lymph % (Auto) 12.7 % 11/14/21 05:08 [place] % (Auto) 8.8 % 11/14/21 05:08 Eos % (Auto) 2.3 % 11/14/21 05:08 Baso % (Auto) 0.3 % 11/14/21 05:08 Neut # (Auto) 7.79 10^3/uL (1.8-7.7) H 11/14/21 05:08 Lymph # (Auto) 1.3 10^3/uL (0.8-4.8) 11/14/21 05:08 [place] # (Auto) 0.9 10^3/uL (0.2-0.9) 11/14/21 05:08 Eos # (Auto) 0.2 10^3/uL (0.0-0.8) 11/14/21 05:08 Baso # (Auto) 0.0 10^3/uL (0.0-0.1) 11/14/21 05:08 Nucleated RBC % (auto) 0 % 11/14/21 05:08 Nucleated RBCs # 0.0 /100WBC 11/14/21 05:08 Sodium 136 mmol/L (136-145) 11/14/21 05:08 Potassium 3.5 mmol/L (3.5-5.1) 11/14/21 05:08 Chloride 100 mmol/L (98-107) 11/14/21 05:08 Carbon Dioxide 24 mmol/L (22-29) 11/14/21 05:08 Anion Gap 15.5 (5-19) 11/14/21 05:08 BUN 4 mg/dL (8-23) L 11/14/21 05:08 Creatinine 0.5 mg/dL (0.5-0.9) 11/14/21 05:08 GFR Calculation 122.7 mL/min (90-130) 11/14/21 05:08 Glucose 97 mg/dL (65-115) 11/14/21 05:08 Calculated Osmolality 279 mOsm/kg (285-295) L 11/14/21 05:08 Lactic Acid 0.8 mmol/L (0.5-2.2) 11/12/21 18:40 Calcium 8.7 mg/dL (8.5-10.5) 11/14/21 05:08 Magnesium 1.8 mg/dL (1.7-2.3) 11/13/21 05:43 Magnesium Cancelled 11/13/21 05:43 Total Bilirubin 0.4 mg/dL (0.15-1.2) 11/14/21 05:08 AST 46 U/L (0-32) H 11/14/21 05:08 ALT 41 U/L (0-33) H 11/14/21 05:08 Alkaline Phosphatase 75 IU/L (35-105) 11/14/21 05:08 Total Protein 6.2 g/dL (6.6-8.7) L 11/14/21 05:08 Albumin 2.6 g/dL (3.5-5.2) L 11/14/21 05:08 Globulin 3.6 g/dL (1.3-4.6) 11/14/21 05:08 Lipase 19 U/L (13-60) 11/12/21 17:15 Urine Color Yellow (Yellow) 11/12/21 17:39 Urine Appearance Clear (CLEAR) 11/12/21 17:39 Urine pH 8 (5-7) H 11/12/21 17:39 Ur Specific [place] 1.015 (1.005-1.030) 11/12/21 17:39 Urine Protein Neg (Negative) 11/12/21 17:39 Urine Glucose (UA) Norm (Normal) 11/12/21 17:39 Urine Ketones Negative (Negative) 11/12/21 17:39 Urine Blood Neg (Negative) 11/12/21 17:39 Urine Nitrate Negative (Negative) 11/12/21 17:39 Urine Bilirubin Neg (Negative) 11/12/21 17:39 Prot Sulfosalicylic Acd Negative (Negative) 11/12/21 17:39 Urine Urobilinogen Norm mg/dL (Negative) 11/12/21 17:39 Ur Leukocyte Esterase 1+ (Negative) H 11/12/21 17:39 Urine RBC None /hpf (0-2) 11/12/21 17:39 Urine WBC 15-25 /hpf (0-5) H 11/12/21 17:39 Ur Squamous Epith Cells 0-4 /hpf (0-5) H 11/12/21 17:39 Amorphous Sediment Not Reportable 11/12/21 17:39 Urine Bacteria Trace /hpf (NONE) 11/12/21 17:39 Nasal Influ A H1 2008 PCR Not detected (NOT DETECT) 11/12/21 17:15 Coronavirus 229E (PCR) Not detected (NOT DETECT) 11/12/21 17:15 Influenza A (H1) PCR Not detected (NOT DETECT) 11/12/21 17:15 Influenza A (H3) PCR Not detected (NOT DETECT) 11/12/21 17:15 Influenza Type A (PCR) Not detected (NOT DETECT) 11/12/21 17:15 Influenza Type B (PCR) Not detected (NOT DETECT) 11/12/21 17:15 SARS-CoV-2 (PCR) Not detected (NOT DETECT) 11/12/21 17:15 Vitals Last Vital Signs Temp 98.3 F 11/14/21 07:43 Pulse 88 11/14/21 07:43 Resp 13 11/14/21 07:43 BP 124/69 11/14/21 07:43 Pulse Ox 97 11/14/21 07:43 Discharge Plan Discharge Patient Disposition: Home Condition: Stable Prescriptions: New Pepcid 40 mg tablet 40 mg PO DAILY Qty: 30 0RF metronidazole 500 mg tablet 500 mg PO BID Qty: 14 0RF ciprofloxacin HCl 500 mg tablet 500 mg PO BID Qty: 14 0RF Continued cholecalciferol (vitamin D3) 125 mcg (5,000 unit) capsule 125 mcg PO DAILY 30 Days Qty: 30 5RF psyllium Packet 1 packet PO QAM 0RF acetaminophen 500 mg Tablet 500 mg PO BID PRN (Reason: Pain) 0RF magnesium citrate Solution 150 ml PO .ONCE 0RF Coricidin HBP Day-Night 10-200 mg(dy)/2 -15-500 mg(nt) Tablet And Capsule, Sequential See Rx Instructions .ROUTE .COMPLEX 0RF Rx Instructions: (Day) takes one cap po bid and (night) one cap bedtime prn turmeric 400 mg Capsule 400 mg PO DAILY PRN (Reason: Inflammation) 0RF telmisartan 40 mg tablet 40 mg PO BEDTIME 0RF rosuvastatin 5 mg tablet 5 mg PO BEDTIME 0RF metoprolol tartrate 25 mg tablet 25 mg PO BID 0RF Discharge Orders: Discharge Order (Routine); Ordered 11/14/21 Ordered By: Seferino Vance Referrals: Devang Aviles MD [Physician] - 12/24/21 9:00 am (APPOINTMENT WILL BE WITH DR AUSTIN AT [facility]) Velma Mireles DO [Primary Care Provider] - 11/26/21 3:00 pm Discharge Diet: Regular Discharge Activity: Increase activity as tolerated Patient Instructions: Ciprofloxacin (By mouth), Famotidine (By mouth), Metronidazole (By mouth), Diverticulitis (GEN), Diverticulitis Diet (DC), Abdominal Pain (ED), Opioid Safety Discharge Attestations Time Spent in Discharge Care*: less than 30 min Quality Metrics Clinical Quality Measures [ No reported AMI, CVA or VTE this stay] Coding Level of Care Code Acute Chg FW DC note Exam Detailed Diagnoses Colitis K52.9
[2021-11-14] MEDS: piperacillin-tazobactam 3.375 GM in sodium chloride 0.9% (plus) 50 ML IV (10:23)
--- NOTE | 2021-11-14 11:55 | PC.NURSE ---
Discharge Note Patient discharged to home via private vehicle accompanied by . Discharge instructions reviewed with patient and/or account retention representative. Mobile pharmacy medications and/or prescriptions provided. Belongings/home medications returned.
[2021-11-14 11:57] VITALS: BP 124/69; PULSE 88; RESP 13; TEMP 36.8; O2SAT 97
== END 2021-11-14 11:58 | disposition home or self-care (01) | DRG 392 ==
LOC: ER 18:26 → MEDSURG 19:25
PROVIDERS: Admitting Provider Internal Medicine; Emergency Provider Emergency Medicine; PCP Family Medicine; Visit Provider Internal Medicine
DX: K52.9 Noninfective gastroenteritis and colitis, unspecified (principal); E87.1 Hypo-osmolality and hyponatremia; I10 Essential (primary) hypertension; G89.29 Other chronic pain; M25.50 Pain in unspecified joint; I34.0 Nonrheumatic mitral (valve) insufficiency; E55.9 Vitamin D deficiency, unspecified; Z87.891 Personal history of nicotine dependence; K59.09 Other constipation
CPT/HCPCS: 36415; 71045; 74176; 80053; 81001; 83605; 83690; 83735; 85025; 87040; 87086; 87631; 87635; 96365; 96372; 96375; 99285; J1650; J2270; J2405; J2543; J3490; J7030

== ENCOUNTER → 2021-11-30 08:44 | Outpatient (BNVA) | payer BC, SELFPAY | PROVIDERS: PCP Family Medicine; Visit Provider Surgery | DX: K57.92 Diverticulitis of intestine, part unspecified, without perforation or abscess without bleeding (principal) | CPT/HCPCS: 99204 ==

== ENCOUNTER → 2021-12-17 11:31 | Outpatient (BNVA) | payer BC, SELFPAY | PROVIDERS: PCP Family Medicine; Visit Provider Internal Medicine Cardiovascular Disease | DX: E78.5 Hyperlipidemia, unspecified (principal); M79.89 Other specified soft tissue disorders; R06.02 Shortness of breath; I10 Essential (primary) hypertension; I77.9 Disorder of arteries and arterioles, unspecified; R09.89 Other specified symptoms and signs involving the circulatory and respiratory systems | CPT/HCPCS: 80061; 80076 ==

== ENCOUNTER 2022-06-24 09:36 | Outpatient (CLI) | payer BC, SELFPAY ==
[2022-06-24 10:44] LABS: Basophils % 0.5 %; Eosinophils # 0.1 10^3/uL (0.0-0.8); Hematocrit 40.4 % (37.0-47.0); Hemoglobin 12.8 g/dL (11.5-15.3); Lymphocytes # 1.8 10^3/uL (0.8-4.8); Mean Corpuscular HGB Conc 31.7 g/dL (30.0-36.0); Mean Corpuscular Volume 91.4 fl (81-99); Mean Platelet Volume 10.2 fL (7.4-10.4); Monocytes # 0.7 10^3/uL (0.2-0.9); Monocytes % 7.7 %; Neutrophils # 6.05 10^3/uL (1.8-7.7); Neutrophils % 69.6 %; Nucleated Red Blood Cells % 0 %; Platelet Count 372 10^3/cmm (130-400); Red Blood Count 4.42 10^6/uL (4.1-5.3); Red Cell Distribution Width 13.1 % (12.1-15.1); White Blood Count 8.7 10^3/uL (4.0-10.0)
[2022-06-24 11:05] LABS: Alanine Aminotransferase 17 U/L (0-33); Albumin Level 4.2 g/dL (3.5-5.2); Alkaline Phosphatase 98 U/L (35-105); Aspartate Amino Transferase 21 U/L (0-32); Chol HDL Ratio 3.04 mg/dL (0.0-4.40); Cholesterol 140 mg/dL (0-200); Globulin 3.7 g/dL (1.3-4.6); HDL Cholesterol 46 mg/dL (60-100); LDL Cholesterol Calculated 79 mg/dL (50-129); LDL HDL Ratio 1.72 RATIO (0.00-3.22); Total Bilirubin 0.4 mg/dL (0.15-1.2); Total Protein 7.9 g/dL (6.6-8.7); Triglycerides 76 mg/dL (0-150)
== END 2022-06-24 09:37 | disposition home or self-care (01) ==
LOC: LAB 09:44
PROVIDERS: Internal Medicine Cardiovascular Disease; PCP Family Medicine; Visit Provider Internal Medicine
DX: E78.5 Hyperlipidemia, unspecified (principal); Z79.01 Long term (current) use of anticoagulants
CPT/HCPCS: 36415; 80061; 80076; 85025

== ENCOUNTER → 2023-01-27 11:11 | Outpatient (BNVA) | payer OTHER, SELFPAY | PROVIDERS: PCP Family Medicine; Visit Provider Family Medicine | DX: I10 Essential (primary) hypertension (principal) | CPT/HCPCS: 80048 ==

== ENCOUNTER → 2023-02-03 10:41 | Outpatient (BNVA) | payer OTHER, SELFPAY | PROVIDERS: PCP Family Medicine; Visit Provider Family Medicine | DX: D64.9 Anemia, unspecified (principal); D50.9 Iron deficiency anemia, unspecified | CPT/HCPCS: 82728; 83550; 85025 ==

== ENCOUNTER 2023-10-24 17:22 | Emergency (ER) | payer MEDICARE, OTHER, SELFPAY ==
[2023-10-24 17:26] VITALS: BP 158/102; PULSE 101; RESP 17; TEMP 36.7; O2SAT 98
--- NOTE | 2023-10-24 17:32 | XRR_ITS ---
PROCEDURE INFORMATION: Exam: XR Chest Exam date and time: 10/24/2023 5:51 PM Age: 68 years old Clinical indication: Chest wall pain; Additional info: Cp TECHNIQUE: Imaging protocol: Radiologic exam of the chest. Views: 1 view. COMPARISON: CR XR chest 1V portable [id number] 11/12/2021 4:55 PM FINDINGS: Lungs: Unremarkable. No consolidation. Pleural spaces: Unremarkable. No pleural effusion. No pneumothorax. Heart/Mediastinum: Unremarkable. No cardiomegaly. Bones/joints: Mild thoracic curvature. No acute fracture. XR/XR chest 1V portable [id number] IMPRESSION: No acute findings.
--- NOTE | 2023-10-24 17:32 | ECG_ITS ---
[facility] Test Date: 2023-10-24 Pat Name: Kathy Franks Department: Room: Gender: Female Director [employer]: : 1955 Requested By: Amy Youssef Order Number: [id number] Clary MD: Topher Connor M.D. Measurements Intervals [place] Rate: 88 P: 52 MA: 162 QRS: 3 QRSD: 82 T: 48 QT: 331 QTc: 402 Interpretive Statements SINUS RHYTHM LEFT ATRIAL ENLARGEMENT [-0.15mV P-WAVE IN V1/V2] Compared to ECG 09/13/2017 06:11:46 Sinus tachycardia no longer present Electronically Signed On 10-25-2023 9:17:24 CDT by Topher Connor M.D. [email or web address]
--- NOTE | 2023-10-24 17:35 | PC.NURSE ---
Pt on bedside monitor worker
--- NOTE | 2023-10-24 17:36 | ED_ITS ---
HPI - Chest Pain 2 General: Chief Complaint: Chest Pain Stated Complaint: chest pain Time Seen by Provider: 10/24/23 17:30 Source: patient Mode of arrival: ambulatory Limitations: no limitations History of Present Illness: 68-year-old female states that she has b een having cough congestion has been going on for the last week. States her cough is actually improved today but she is now having a sharp left-sided chest pain. States it is worse with palpation she thinks she may have strained a muscle but she would make sure she that her heart was okay. She denies any dyspnea denies any fevers. PFSH ED 2 PFSH: Medical History Chronic joint pain Diverticulitis of large intestine with complication Essential hypertension Left leg swelling Non-rheumatic mitral regurgitation Vitamin D deficiency Surgical History No pertinent past surgical history Family History Sister Cancer Family/Other Diabetes Stroke Denies family history of CAD (coronary artery disease) Clotting disorder Dementia Chronic kidney disease (CKD) Suicide Anesthesia complication Bleeding disorder Lung disease Social History Smoking and tobacco/nicotine status: former use of tobacco/nicotine Alcohol intake: never Substance/Drug Use: never Physical Exam 2 Const: COMMON NORMALS: no acute distress, patient oriented x3 and healthy appearing HENMT: COMMON NORMALS: normocephalic and atraumatic HEAD & SCALP: n ormocephalic and atraumatic Eye: COMMON NORMALS: conjunctivae normal CONJUNCTIVA: Yes conjunctivae normal Neck/C-Spine: COMMON NORMALS: full ROM and supple Chest: COMMONS NORMALS: normal inspection of the chest OTHER: tenderness to left chest reproduces pain Resp: COMMON NORMALS: normal respiratory effort, No retractions, No use of accessory muscles and clear to auscultation bilaterally AUSCULTATION: clear to auscultation bilaterally Cardio: COMMON NORMALS: regular rate, regular rhythm and No murmurs present (Cardio) RATE: regular rate RHYTHM: regular rhythm GI: COMMON NORMALS: Normal to inspection, nondistended, normoactive bowel sounds present, Soft to palpation, non-tender and no masses PALPATION: Yes Soft to palpation Extremity: COMMON NORMALS: normal to inspection and full ROM Neuro: COMMON NORMALS: patient oriented x3, moves all extremities and no focal motor deficits Psych: COMMON NORMALS: mental status grossly normal, Normal thought process present and cooperative THOUGHT PROCESS: Normal thought process present Skin: COMMON NORMALS: no rashes or lesions noted and no wounds GENERAL SKIN EXAM: no rashes or lesions noted Course 2 Vital Signs: Vital signs: Vital Signs Temperature 98.0 F 10/24/23 17:26 Pulse Rate 89 10/24/23 20:43 Respiratory Rate 17 10/24/23 20:43 Blood Pressure 130/66 10/24/23 20:43 Pulse Oximetry 97 10/24/23 20:43 Oxygen Delivery Me thod Room Air 10/24/23 20:00 MDM - Chest Pain Medical Decision Making Patient presents for chest pain is been ongoing is atypical in nature she had some tenderness here on exam she has no signs of pulmonary embolism or aortic dissection her troponins here are negative inform her she needs to follow-up 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 Lab Data I reviewed the patient's lab results. 10/24/23 17:40 10/24/23 17:40 Radiology Impressions Chest X-Ray 10/24/23 17:32 IMPRESSION: No acute findings. Laboratory Results WBC 12.06 10^3/uL (3.29-11.43) H 10/24/23 17:40 RBC 4.59 10^6/uL (3.85-5.65) 10/24/23 17:40 Hgb 13.60 g/dL (11.27-16.99) 10/24/23 17:40 Hct 41.6 % (36-47) 10/24/23 17:40 MCV 90.6 fl (85-98) 10/24/23 17:40 MCH 29.6 pg (27-33) 10/24/23 17:40 MCHC 32.7 g/dL (30-55) 10/24/23 17:40 RDW 13.5 % (12.1-15.1) 10/24/23 17:40 Plt Count 340 10^3/cmm (157-399) 10/24/23 17:40 MPV 10.7 fL (7.4-10.4) H 10/24/23 17:40 Neut % (Auto) 69.2 % 10/24/23 17:40 Lymph % (Auto) 20.2 % 10/24/23 17:40 Bucks % (Auto) 8.4 % 10/24/23 17:40 Eos % (Auto) 1.7 % 10/24/23 17:40 Baso % (Auto) 0.3 % 10/24/23 17:40 Neut # (Auto) 8.35 10^3/uL (1.8-7.7) H 10/24/23 17:40 Lymph # (Auto) 2.4 10^3/uL (0.8-4.8) 10/24/23 17:40 Bucks # (Auto) 1.0 10^3/uL (0.2-0.9) H 10/24/23 17:40 Eos # (Auto) 0.2 10^3/uL (0.0-0.8) 10/24/23 17:40 Baso # (Auto) 0.0 10^3/uL (0.0-0.1) 10/24/23 17:40 Nucleated RBC % (auto) 0 % 10/24/23 17:40 Nucleated RBCs # 0.0 /100WBC 10/24/23 17:40 PT 13.10 SECONDS (12.1-14.9) 10/24/23 17:40 INR 0.96 (0.8-1.2) 10/24/23 17:40 Sodium 139 mmol/L (136-145) 10/24/23 17:40 Potassium 3.9 mmol/L (3.5-5.1) 10/24/23 17:40 Chloride 100 mmol/L (98-107) 10/24/23 17:40 Carbon Dioxide 27 mmol/L (22-29) 10/24/23 17:40 Anion Gap 15.9 (5-19) 10/24/23 17:40 BUN 13 mg/dL (8-23) 10/24/23 17:40 Creatinine 0.9 mg/dL (0.5-0.9) 10/24/23 17:40 GFR Calculation 61.9 mL/min (90-130) L 10/24/23 17:40 Glucose 103 mg/dL (65-115) 10/24/23 17:40 Calculated Osmolality 288 mOsm/kg (285-295) 10/24/23 17:40 Calcium 10.6 mg/dL (8.5-10.5) H 10/24/23 17:40 Total Bilirubin 0.4 mg/dL (0.15-1.2) 10/24/23 17:40 AST 27 U/L (0-32) 10/24/23 17:40 ALT 25 U/L (0-33) 10/24/23 17:40 Alkaline Phosphatase 107 U/L (35-105) H 10/24/23 17:40 Troponin T Baseline 10 ng/L (0-10) 10/24/23 17:40 Troponin T 120 Minute 9.95 ng/L (0-10) 10/24/23 19:34 Delta Troponin T -0.05 ABS# (0-10) L 10/24/23 19:34 Total Protein 8.2 g/dL (6.6-8.7) 10/24/23 17:40 Albumin 4.3 g/dL (3.5-5.2) 10/24/23 17:40 Globulin 3.9 g/dL (1.3-4.6) 10/24/23 17:40 Lipase 39 U/L (13-60) 10/24/23 17:40 All radiology interpretation(s) finalized by discharge EKG Data EKG 1: I personally reviewed and interpreted this EKG as follows: EKG interpretation date: 10/24/23 EKG interpretation time: 17:28 Interpretation: nsr hr [address] or t wave abnormalities qrs 82 qtc 377 EKG 2: I personally reviewed and interpreted this EKG as follows: EKG interpretation date: 10/24/23 EKG interpretation time: 19:46 Interpretation: nsr hr [address] or t wave abnormalities qrs 82 qtc 400 Discharge Plan Discharge Patient Disposition: Home Clinical Impression: Chest pain Condition: Stable Prescriptions: No Action rosuvastatin 5 mg tablet See Rx Instructions .ROUTE .COMPLEX Qty: 90 3RF Dose Instruction: TAKE 1 TABLET BY MOUTH EVERY DAY AT BEDTIME Rx Instructions: TAKE 1 TABLET BY MOUTH EVERY DAY AT BEDTIME telmisartan 40 mg tablet See Rx Instructions .ROUTE .COMPLEX Qty: 90 3RF Dose Instruction: Take 1 tablet by mouth once daily Rx Instructions: Take 1 tablet by mouth once daily metoprolol tartrate 25 mg tablet See Rx Instructions .ROUTE .COMPLEX Qty: 180 0RF Dose Instruction: Take 1 tablet by mouth twice daily Rx Instructions: Take 1 tablet by mouth twice daily acetaminophen 500 mg Tablet 500 mg PO BID PRN (Reason: Pain) Discharge Orders: Discharge ED (Routine); Ordered 10/24/23 Ordered By: Amy Youssef Referrals: Velma Mireles DO [Primary Care Provider] - 4-7 days Discharge Diet: Advance as tolerated Discharge Activity: Resume usual activity Patient Instructions: Chest Pain (ED) Coding Level of Care Code ED Range Technician for Celia Nagel
[2023-10-24 18:01] LABS: Basophils % 0.3 %; Eosinophils # 0.2 10^3/uL (0.0-0.8); Eosinophils % 1.7 %; Hematocrit 41.6 % (36-47); Lymphocytes # 2.4 10^3/uL (0.8-4.8); Lymphocytes % 20.2 %; Mean Corpuscular HGB Conc 32.7 g/dL (30-55); Mean Corpuscular Hemoglobin 29.6 pg (27-33); Mean Corpuscular Volume 90.6 fl (85-98); Mean Platelet Volume 10.7 fL (7.4-10.4); Monocytes % 8.4 %; Neutrophils # 8.35 10^3/uL (1.8-7.7); Neutrophils % 69.2 %; Nucleated Red Blood Cells % 0 %; Platelet Count 340 10^3/cmm (157-399); Red Blood Count 4.59 10^6/uL (3.85-5.65); Red Cell Distribution Width 13.5 % (12.1-15.1); White Blood Count 12.06 10^3/uL (3.29-11.43)
[2023-10-24 18:14] LABS: INR 0.96 (0.8-1.2)
[2023-10-24 18:21] LABS: Alanine Aminotransferase 25 U/L (0-33); Albumin Level 4.3 g/dL (3.5-5.2); Alkaline Phosphatase 107 U/L (35-105); Anion Gap 15.9 (5-19); Aspartate Amino Transferase 27 U/L (0-32); Blood Urea Nitrogen 13 mg/dL (8-23); Calcium 10.6 mg/dL (8.5-10.5); Carbon Dioxide 27 mmol/L (22-29); Chloride 100 mmol/L (98-107); Creatinine Clr Calc Pharmacy 57.1244; Globulin 3.9 g/dL (1.3-4.6); Glomerular Filtration Rate 61.9 mL/min (90-130); Glucose 103 mg/dL (65-115); Lipase 39 U/L (13-60); Osmolality Calculated 288 mOsm/kg (285-295); Potassium 3.9 mmol/L (3.5-5.1); Sodium 139 mmol/L (136-145); Total Bilirubin 0.4 mg/dL (0.15-1.2); Total Protein 8.2 g/dL (6.6-8.7)
[2023-10-24 18:48] VITALS: BP 156/73; PULSE 90; RESP 16; O2SAT 97
[2023-10-24 19:03] LABS: Troponin(5th) Baseline 10 ng/L (0-10)
--- NOTE | 2023-10-24 19:46 | ECG_ITS ---
[facility] Test Date: 2023-10-24 Pat Name: Kathy Franks Department: Room: Gender: Female Word Processor: : 1955 Requested By: Amy Youssef Order Number: [id number] Cl[place] MD: Topher Connor M.D. Measurements Intervals [place] Rate: 94 P: 49 CO: 155 QRS: 4 QRSD: 82 T: 42 QT: 348 QTc: 437 Interpretive Statements SINUS RHYTHM LEFT ATRIAL ENLARGEMENT [-0.15mV P-WAVE IN V1/V2] Compared to ECG 10/24/2023 17:28:48 No significant changes Electronically Signed On 10-25-2023 9:19:41 CDT by Topher Connor M.D. [id number]
[2023-10-24 20:00] VITALS: BP 150/83; PULSE 92; RESP 16; O2SAT 95
[2023-10-24 20:00] LABS: Troponin 5 2HR 9.95 ng/L (0-10); Troponin 5 2HR Delta -0.05 ABS# (0-10)
[2023-10-24 20:43] VITALS: BP 130/66; PULSE 89; RESP 17; O2SAT 97
--- NOTE | 2023-10-27 08:08 | DCPLANNER ---
Message sent cardiology for follow up n chest pain-
== END 2023-10-24 20:44 | disposition home or self-care (01) ==
PROVIDERS: Emergency Provider Emergency Medicine; PCP Family Medicine
DX: R07.9 Chest pain, unspecified (principal); Z87.891 Personal history of nicotine dependence; I10 Essential (primary) hypertension
CPT/HCPCS: 36415; 71045; 80053; 83690; 84484; 85025; 85610; 93005; 99285

== ENCOUNTER → 2024-06-22 11:04 | Outpatient (BNVA) | payer OTHER, SELFPAY | PROVIDERS: PCP Family Medicine; Visit Provider Emergency Medicine | DX: R52 Pain, unspecified (principal) | CPT/HCPCS: 87400 ==

== ENCOUNTER → 2025-05-09 09:23 | Outpatient (BNVA) | payer OTHER, MEDICARE, SELFPAY | PROVIDERS: PCP Family Medicine; Visit Provider Family Medicine | DX: I10 Essential (primary) hypertension (principal) | CPT/HCPCS: 80053; 80061; 85025 ==